=== PATIENT | male | born 1985 | race Caucasian/White ===

== ENCOUNTER → 2019-07-16 15:29 | Outpatient (BNVA) | payer MEDICAID, SELFPAY | PROVIDERS: Visit Provider Nurse Practitioner | DX: M25.532 Pain in left wrist (principal); R60.9 Edema, unspecified | CPT/HCPCS: 73110 ==

== ENCOUNTER 2019-07-24 00:23 | Emergency (ER) | payer MEDICAID, SELFPAY ==
[2019-07-24 00:27] VITALS: BP 142/77; PULSE 106; RESP 18; TEMP 36.8; O2SAT 96; BMI 25.0
[2019-07-24 00:31] VITALS: PULSE 90
--- NOTE | 2019-07-24 00:31 | XR_ITS ---
WS: [id number] LEFT WRIST: 3 VIEW(S) TECHNIQUE: PA, oblique and lateral. HISTORY: injury with pain and swelling COMPARISON: 07/16/2019 No acute fracture or dislocation. No joint space abnormality. Diffuse soft tissue swelling around the wrist. XR/XR wrist LT min 3V* [id number] IMPRESSION: Diffuse soft tissue swelling around the wrist but no fracture.
--- NOTE | 2019-07-24 00:31 | PC.NURSE ---
Patient states he was working on a car last week and the christie slipped out from under the car and the tire landed on his left wrist. Patients left wrist is reddened and swollen and painful to the touch.
--- NOTE | 2019-07-24 00:32 | W.ED.EXTPRO ---
HPI - Extremity Problem General: Chief complaint: Extremity Injury, Upper Stated complaint: L WRIST INJURY Time Seen by Provider: 07/24/19 00:25 History of Present Illness: HPI Narrative: Patient is a 34-year-old male who comes to the ED with left wrist pain and swelling. Patient says that last Sunday he injured it when a car that was sitting on a christie shifted and the weight of the car came down on patient's left wrist. That night he went to the ED in [place] and got an x-ray and they told him it was not broken and they gave him a wrist splint and told him to take it off in a week. They also told him if it is not getting better and are still having a lot of pain to get it I awaited. Patient just took off the wrist splint today and said the swelling and pain in his left wrist and hand has not gotten any better and wanted to come get the injury reevaluated. He still has feeling sensation in his hand. He has trouble with certain movements of his wrist and fingers because of the pain. Patient currently rates pain in wrist a 9 out of 10. Associated symptoms: Deny chest pain, fever(s) or rash Review of Systems Const: Denies: fever, chills or fatigue Eyes: Denies: change in vision or eye discomfort ENMT: Denies: throat pain, painful swallowing, nasal discharge or nasal congestion Card: Denies: chest pain, palpitations, edema, swelling of feet/ankles, shortness of breath on exertion or shortness of breath when lying down Resp: Denies: shortness of breath, productive cough or non-productive cough GI: Denies: abdominal pain, nausea, vomiting, diarrhea, constipation or blood in stool : Denies: flank pain, difficulty urinating, painful urination or blood in urine Musc: Reports: extremity pain (left hand and wrist) and extremity swelling (left hand and wrist); Denies: neck pain or back pain Skin/Breast: Denies: rash or new lesion Neuro: Denies: headache, numbness in extremities or weakness in extremities [facility] ED PFSH: Medical History No active medical problems Surgical History History of hernia repair Bilateral 2005 and 2010 Family History Other Cancer Denies family history of Bleeding disorder Social History Smoking and tobacco status: current every day smoker Second hand smoke exposure: No Smoking risk assessment/counseling performed?: No Alcohol intake: current Alcohol intake frequency: holidays/special occasions only Desire information about alcohol rehabilitation?: No Counseling given: No Desire information about substance/drug rehabilitation?: No Counseling given: No Caregiver/support person: No Lives independently: Yes Household members: significant other Marital status: Single Number of children: 0 service: No Current occupational status: unemployed History of recent travel: No Current gender identity: Male Physical Exam Const: COMMON NORMALS: oriented x3 HENMT: COMMON NORMALS: normocephalic HEAD & SCALP: normocephalic MOUTH: oral and palatal mucosa normal THROAT: posterior oropharynx normal and uvula midline Eye: COMMON NORMALS: PERRL PUPIL: Yes PERRL Neck/C-Spine: COMMON NORMALS: supple GENERAL: Yes normal visual inspection Resp: COMMON NORMALS: normal respiratory effort, no retractions, no use of accessory muscles and clear to auscultation bilaterally AUSCULTATION: clear to auscultation bilaterally Cardio: COMMON NORMALS: regular rate, regular rhythm, S1 normal heart sound, S2 normal heart sound, no gallops, no clicks, no murmurs and peripheral pulses 2+ throughout RATE: regular rate RHYTHM: regular rhythm HEART SOUNDS: S1 normal and S2 normal PERIPHERAL PULSES: pulses 2+ throughout GI: COMMON NORMALS: normal to inspection, nondistended, normoactive bowel sounds, soft to palpation, non-tender and no masses PALPATION: Yes soft : COMMON NORMALS: Yes no CVA tenderness BLADDER/KIDNEY EXAM: Yes no CVA tenderness Back/Pelvis: COMMON NORMALS: no CVA tenderness Extremity: COMMON NORMALS: normal capillary refill GENERAL: Yes normal exam except as noted LEFT UPPER EXTREMITY: Yes wrist Left wrist: Yes inspection (swelling), Yes palpation (tender ulnar side of wrist.), Yes ROM (Limited due to pain) and Yes neurovascular exam (Intact) and Yes hand & digits Left hand and digits: Yes inspection (Hand and fingers are swollen. No warmth), Yes palpation (tender), Yes ROM (limited due to pain) and Yes neurovascular exam (intact-normal cap refill) Neuro: COMMON NORMALS: oriented x3 and moves all extremities Skin: COMMON NORMALS: no rashes or lesions noted GENERAL SKIN EXAM: no rashes or lesions noted and dry skin Course Vital Signs: Vital signs: Vital Signs Temperature 98.2 F 07/24/19 00:27 Pulse Rate 96 07/24/19 01:38 Respiratory Rate 16 07/24/19 01:38 Blood Pressure 133/72 07/24/19 01:38 Pulse Oximetry 95 07/24/19 01:38 MDM - Extremity (Nontraumatic) MDM Narrative: Medical decision making narrative: Patient is a 34-year-old male comes to the ED for a subsequent encounter after having an injury to his left wrist. A week ago patient was seen at the [facility] and an x-ray was performed and saw no acute fractures on his left wrist. They told him to return to ED for reevaluation once swelling has gone down and if pain is still present. X-ray of left wrist today showed possible metacarpal fracture and was suspicious for possible scaphoid fracture. Patient was placed in a thumb spica splint and given a written prescription for hydrocodone for pain. I placed an order with case management to provide patient with an orthopedic referral. I told patient [facility] orthopedic office should be contacting patient in the next several days to set up an appointment. I told him to keep splint on and to limit use of left hand. Patient understood and agreed with plan. Imaging Data^: Xray Ortho: Attestation: I personally reviewed and interpreted this imaging study as follows: My impression: Left wrist x-ray--possible second metacarpal fracture. Suspicious for potential scaphoid fracture. Pending final radiology report. Discharge Plan Discharge Patient Disposition: Home, Self-Care Clinical Impression: Fx metacarpal Qualifiers: Encounter type: subsequent encounter Metacarpal bone: second Fracture type: closed Metacarpal location: base Fracture alignment: nondisplaced Laterality: left Fracture healing: with routine healing Qualified Code(s): S62.341D - Nondisplaced fracture of base of second metacarpal bone, left hand, subsequent encounter for fracture with routine healing Condition: Stable Prescriptions: No Action No Known Home Medications RF: 0 Discharge Orders: Discharge Order (Routine); Ordered 04/30/20 Ordered By: Fer Chase Discharge Diet: Regular Discharge Activity: Limit activity as instructed Patient Instructions: Hand Fracture (ED) Activity Restrictions/Additional Instructions: [facility] orthopedic clinic should be calling you in the next several days to set up an appointment. Wear splint until seen by Ortho. Sending you home with a written prescription for hydrocodone for pain. You can also add some doses of ibuprofen in between the hydrocodone to help with pain. See [id number] ibuprofen instructions for dosing. Limit use with left hand. Discharge Date/Time: 07/24/19 01:42 Coding Level of Care Code ED Director Information for Ayan Fwrio Exam Comprehensive
[2019-07-24 00:34] VITALS: BP 137/84; PULSE 106; RESP 16; O2SAT 97
[2019-07-24] MEDS: HYDROcodone-acetaminophen 7.5-325 mg Tablet 1 TAB PO (00:40)
--- NOTE | 2019-07-24 00:43 | PC.NURSE ---
xray in room
[2019-07-24 01:38] VITALS: BP 133/72; PULSE 96; RESP 16; O2SAT 95
--- NOTE | 2019-07-25 10:03 | DCPLANNER ---
Addendum entered by Nayeli Mckay 07/25/19 10:24: Pat from ortho called binder caser back, stated that patients information was reviewed, patient is to follow ED instructions and will follow up with Dr. Harper on at 1:00 at the ortho clinic. The clinic attempted to call patient at phone number [phone], was unable to speak with patient or leave a voicemail for patient at this time at this number. Clinic did leave a voicemail at phone number [phone] for patient to return binder caser phone call. Clinic will mail out an appointment letter to patient. manager of development called [phone] and was unable to speak with patient or leave a voicemail for patient. Original Note: manager of development had message to schedule a follow up appointment for patient with ortho. manager of development called the ortho clinic, spoke with Pat, gave clinic patients information. manager of development was told that patients information would be printed and reviewed. Clinic will call binder caser and patient with appointment information.
--- NOTE | 2019-09-24 13:23 | DCPLANNER ---
Patient did not attend appointment scheduled for 08.20.19 with ortho.
== END 2019-07-24 01:42 | disposition home or self-care (01) ==
PROVIDERS: Emergency Provider Physician Assistant
DX: S62.341A Nondisplaced fracture of base of second metacarpal bone, left hand, initial encounter for closed fracture (principal); W20.8XXA Other cause of strike by thrown, projected or falling object, initial encounter; F17.210 Nicotine dependence, cigarettes, uncomplicated
CPT/HCPCS: 12345; 73110; 99281; 99283

== ENCOUNTER 2019-11-18 23:01 | Emergency (ER) | payer MEDICAID, SELFPAY ==
--- NOTE | 2019-11-18 23:04 | XRR_ITS ---
PROCEDURE INFORMATION: Exam: XR Right Shoulder Exam date and time: 11/18/2019 11:38 PM Age: 34 years old Clinical indication: Pain; Shoulder; Right; Patient HX: Patient denies any injury TECHNIQUE: Imaging protocol: XR Right shoulder. Views: 2 or more views. COMPARISON: MRI Shoulder w/o RIGHT* [id number] 05/27/2018 3:11 PM FINDINGS: Bones/joints: No fractures, dislocations, or separations identified. No significant bony abnormality identified. Soft tissues: No subcutaneous gas or radiopaque foreign body identified. XR/XR shoulder RT min 2V* [id number] IMPRESSION: 1. No fractures, dislocations, or separations identified.
[2019-11-18 23:16] VITALS: BP 118/73; PULSE 89; RESP 18; TEMP 36.7; O2SAT 98; BMI 26.6
[2019-11-19 02:02] VITALS: BP 132/87; PULSE 87; RESP 16; O2SAT 98
--- NOTE | 2019-11-19 02:04 | ED_ITS ---
HPI - Extremity Problem General: Chief complaint: Extremity Injury, Upper Stated complaint: shoulder pain Time Seen by Provider: 11/19/19 02:03 History of Present Illness: HPI Narrative: Patient is a 34-year-old male comes to the ED with right shoulder pain. Patient says he was working today and lifting something heavy and he heard and felt his shoulder pop. He now has pain in his right shoulder and it hurts for him to lift his right arm. Associated symptoms: Deny chest pain, fever(s) or rash Review of Systems Const: Denies: fever(s), chills or fatigue Eyes: Denies: change in vision or eye discomfort ENMT: Denies: throat pain, odynophagia, nasal discharge or nasal congestion Card: Denies: chest pain, palpitations, edema, swelling of feet/ankles, dyspnea on exertion or orthopnea Resp: Denies: dyspnea, productive cough or non-productive cough GI: Denies: abdominal pain, nausea, vomiting, diarrhea, constipation or hematochezia : Denies: flank pain, difficulty urinating, dysuria or hematuria Musc: Reports: extremity pain (Right shoulder pain); Denies: neck pain, back pain or extremity swelling Skin/Breast: Denies: rash or new lesions Neuro: Denies: headache(s), numbness in extremities or weakness in extremities PFSH ED PFSH: Medical History Personal history of nicotine dependence Surgical History History of hernia repair Bilateral 2005 and 2009 Family History Other Cancer Denies family history of Bleeding disorder Social History Smoking and tobacco status: current every day smoker Second hand smoke exposure: No Smoking risk assessment/counseling performed?: No Alcohol intake: current Alcohol intake frequency: holidays/special occasions only Desire information about alcohol rehabilitation?: No Counseling given: No Desire information about substance/drug rehabilitation?: No Counseling given: No Caregiver/support person: No Lives independently: Yes Household members: significant other Marital status: Single Number of children: 0 service: No Current occupational status: unemployed History of recent travel: No Current gender identity: Male Physical Exam Const: COMMON NORMALS: no acute distress, patient oriented x3, healthy appearing and alert GENERAL APPEARANCE: cooperative and comfortable HENMT: COMMON NORMALS: normocephalic HEAD & SCALP: normocephalic MOUTH: Normal oral and palatal mucosa present THROAT: posterior oropharynx normal and uvula midline Eye: COMMON NORMALS: Equal, round and reactive pupils present PUPIL: Yes Equal, round and reactive pupils present Neck/C-Spine: COMMON NORMALS: supple GENERAL: Yes normal visual inspection Resp: COMMON NORMALS: normal respiratory effort, No retractions, No use of accessory muscles and clear to auscultation bilaterally AUSCULTATION: clear to auscultation bilaterally Cardio: COMMON NORMALS: regular rate, regular rhythm, S1 normal heart sound present, S2 normal heart sound present, No gallops present (Cardio), No clicks present (Cardio), No murmurs present (Cardio) and Peripheral pulses 2+ throughout RATE: regular rate RHYTHM: regular rhythm HEART SOUNDS: S1 normal heart sound present and S2 normal heart sound present PERIPHERAL PULSES: Peripheral pulses 2+ throughout GI: COMMON NORMALS: Normal to inspection, nondistended, normoactive bowel sounds present, Soft to palpation, non-tender and no masses PALPATION: Yes Soft to palpation : COMMON NORMALS: Yes no CVA tenderness BLADDER/KIDNEY EXAM: Yes no CVA tenderness Back/Pelvis: COMMON NORMALS: no CVA tenderness Extremity: NARRATIVE EXTREMITY EXAM: Left upper extremity--Patient had tenderness to palpation of the right shoulder over AC joint and proximal end of humerus. Pain with abduction of right arm. Radial pulse was 2+ and sensation intact to hands. Patient had normal range of motion with elbow forearm and hands. GENERAL: Yes normal exam except as noted Neuro: COMMON NORMALS: patient oriented x3 and moves all extremities SENSORIUM/ORIENTATION: Yes alert Skin: GENERAL SKIN EXAM: dry skin Course Vital Signs: Vital signs: Vital Signs Temperature 98.1 F 11/18/19 23:16 Pulse Rate 87 11/19/19 02:02 Respiratory Rate 16 11/19/19 02:02 Blood Pressure 132/87 11/19/19 02:02 Pulse Oximetry 98 11/19/19 02:02 MDM - Extremity (Nontraumatic) MDM Narrative: Medical decision making narrative: Patient is a 34-year-old male who comes to the ED with right shoulder pain. Patient said that he heard his shoulder pop while working and lifting a heavy object today. Right shoulder x-ray showed no acute fracture findings. I discussed with patient that the x-ray does not rule out any soft tissue damage that could have been done to shoulder and for further evaluation he would need to receive outpatient imaging. Physical exam showed a patient with pain upon abduction of right arm. Radial pulse was 2+ and sensation intact distally in right upper extremity. Patient was diagnosed with right shoulder pain and given a shot of Toradol and Norflex while here in the ED. Order was placed with case management for patient to be referred to orthopedic. Patient was sent home with a prescription for Robaxin and 800 mg ibuprofen. He was told to wear sling and limit activity with right arm. I told him case management should be contacting him the next several days to set up an appoint with orthopedic doctor. Patient understood and agreed with plan. Imaging Data^: Xray Ortho: Attestation: I personally reviewed and interpreted this imaging study as follows: My impression: Right shoulder x-ray-no acute fractures or findings. Discharge Plan Discharge Patient Disposition: Home Clinical Impression: Right shoulder pain Qualifiers: Chronicity: acute Qualified Code(s): M25.511 - Pain in right shoulder Condition: Stable Prescriptions: New ibuprofen 800 mg tablet 800 mg PO Q8H PRN (Reason: pain) Qty: 30 RF: 0 Robaxin-750 750 mg tablet 750 mg PO Q8H Qty: 20 RF: 0 No Action No Known Home Medications RF: 0 Discharge Orders: Discharge Order (Routine); Ordered 11/19/19 Ordered By: Fer Chase Discharge Diet: Regular Discharge Activity: Increase activity as tolerated and Limit activity as instructed Patient Instructions: Shoulder Sprain (ED) Activity Restrictions/Additional Instructions: Follow-up with medical provider as directed. Case management should be contacting you in the next several days to set up an appointment with orthopedic. You can wear your shoulder sling at home daily to help with pain. Make sure to remove arm from sling daily and do range of motion exercises. Take medications as prescribed. Robaxin is a muscle relaxer and can cause some drowsiness, so take at night before bed and use with caution during the day. Return to the ER or your medical provider if condition worsens. Please read and understand discharge instructions. If any questions, please ask. Coding Level of Care Code ED Psychologist [employer] for Ayan Fwrio Exam Comprehensive
[2019-11-19] MEDS: ketorolac 60 mg/2 mL INJ IM (02:30)
[2019-11-19] MEDS: orphenadrine 30 mg/mL Inj 2 mL 60 MG IM (02:31)
[2019-11-19 02:32] VITALS: BP 123/76; PULSE 89; RESP 16; O2SAT 98
--- NOTE | 2019-11-19 08:10 | DCPLANNER ---
manager discovery had message to schedule a follow up appointment for patient with ortho. manager discovery called the ortho clinic, spoke with Cydney, gave clinic patients information. manager discovery was told that patients information would be printed and reviewed. Clinic will call patient with appointment information.
--- NOTE | 2019-11-21 15:44 | DCPLANNER ---
Patient has a follow up appointment for patient with ortho scheduled for Sunday, December 03, 2019 at 1:[address] Cisneros. Clinic will call patient with appointment information.
--- NOTE | 2019-12-23 08:15 | DCPLANNER ---
Patient had a follow up appointment scheduled for 12.03.19 with ortho - patient did attend the appointment.
== END 2019-11-19 02:33 | disposition home or self-care (01) ==
PROVIDERS: Emergency Provider Physician Assistant
DX: M25.511 Pain in right shoulder (principal); F17.210 Nicotine dependence, cigarettes, uncomplicated
CPT/HCPCS: 12345; 73030; 96372; 99281; 99283; J1885; J2360

== ENCOUNTER 2019-12-15 16:22 | Outpatient (CLI) | payer MEDICAID, SELFPAY ==
--- NOTE | 2019-12-15 16:00 | MR_ITS ---
WS: [id number] MRI RIGHT SHOULDER NONCONTRAST TECHNIQUE: Sagittal T2, coronal T1, T2 and proton density imaging. Axial gradient PDE imaging. CLINICAL INFORMATION: M25.511 Pain in right shoulder COMPARISON: MRI 3 FINDINGS: Mild degenerative arthritis of the AC joint. Mild subacromial spurring. Tendinopathy in the distal sorensen praspinatus with small undersurface tear at the insertion. Infraspinatus is slightly atrophic but oth erwise appears normal today. Normal teres minor and subscapularis. Normal signal in the subscapularis tendons. Chronic tear of the proximal biceps tendon not visualized in the bicipital groove. Atrophic proximal biceps tendon. Distal biceps tendon appears intact but atrophic. Grossly normal glenoid lab rum. Cystic degenerative change the greater tuberosity. Small amount of subacromial/subdeltoid fluid. MR/MR shoulder RT wo con* [id number] IMPRESSION: 1. Mild degenerative arthritis AC joint with a small amount of subacromial/sub deltoid fluid. 2. Tendinopathy in the distal supraspinatus with a small undersurface tear at the insertion. 3. No full-thickness rotator cuff tears. Normal signal today and infraspinatus and subscapularis. 4. Proximal biceps tendon is poorly visualized and chronically torn. Distal bi ceps tendon appears intact but somewhat atrophic. 5. Cystic degenerative change at the greater tuberosity.
== END 2019-12-15 16:23 | disposition home or self-care (01) ==
LOC: RADSHAW 16:27
PROVIDERS: Visit Provider Specialist
DX: M19.011 Primary osteoarthritis, right shoulder (principal); S46.211A Strain of muscle, fascia and tendon of other parts of biceps, right arm, initial encounter; X58.XXXA Exposure to other specified factors, initial encounter
CPT/HCPCS: 73221

== ENCOUNTER 2019-12-31 06:50 | Emergency (ER) | payer MEDICAID, SELFPAY ==
[2019-12-31 07:12] VITALS: BP 140/80; PULSE 108; RESP 20; TEMP 37.3; O2SAT 98; BMI 27.3
--- NOTE | 2019-12-31 07:22 | W.ED.ABDPA2 ---
HPI - Abdominal Pain General: Chief Complaint: Abdominal Pain Stated Complaint: ABD PAIN POST CONSTIPATION/RECENT FEVER Time Seen by Provider: 12/31/19 06:51 History of Present Illness: HPI narrative: 34-year-old male patient presents to the emergency department with acute onset of abdominal pain started last night. He reports attempted to have a bowel movement but was unable to do so. He reports his last bowel movement was several days ago. He reports nausea vomiting started during the night. Denies diarrhea. Denies hematemesis, hematochezia. History of hernia surgery years ago, right inguinal. He reports while attempting to go to the bathroom to have a bowel movement yesterday, he felt a pop in his abdomen. Reports history of irritable bowel symptoms. He reports pain he is experiencing currently is different from IBS symptoms. MD elicited complaint: abdominal pain Pertinent past history: constipation Onset (ago): day(s) (24) Pain Consistency: constant Location: Diffuse Severity: moderate Quality: cramping and aching Migration to: no migration Exacerbating factors: bowel movement Relieving factors: rest Associated Symptoms: Reports change in bowel habits (Constipation), GI cramping, nausea and vomiting; Denies chills, dysuria, fever(s), hematemesis, melena and syncope Review of Systems General: Reports: 10 or more systems reviewed and unremarkable except in HPI and below Const: Denies: fever(s), chills or diaphoresis Eyes: Denies: blurry vision or eye redness ENMT: Denies: throat pain, dental pain or disequilibrium Card: Denies: chest pain, palpitations, irregular heart rhythm or syncope Resp: Denies: dyspnea, productive cough, non-productive cough or wheezing GI: Reports: abdominal pain, nausea, vomiting, GI cramping and change in bowel habits (Constipation); Denies: hematemesis, dysphagia or melena : Denies: dysuria Musc: Denies: back pain Skin/Breast: Denies: rash or pruritus Neuro: Denies: headache(s), weakness in extremities or behavioral changes Isma/Lymph: Denies: easy bruising [facility] ED PFSH: Medical History (Updated 12/31/19 @ 08:33 by ANNMARIE Toure) Personal history of nicotine dependence Surgical History History of hernia repair Bilateral 2005 and 2009 Family History Other Cancer Denies family history of Bleeding disorder Social History (Updated 12/31/19 @ 07:46 by Jeannine Garcia [facility]) Smoking and tobacco status: current every day smoker Second hand smoke exposure: No Smoking risk assessment/counseling performed?: No Alcohol intake: current Alcohol intake frequency: holidays/special occasions only Desire information about alcohol rehabilitation?: No Counseling given: No Desire information about substance/drug rehabilitation?: No Counseling given: No Caregiver/support person: No Lives independently: Yes Household members: significant other Marital status: Single Number of children: 0 service: No Current occupational status: unemployed History of recent travel: No Current gender identity: Male Physical Exam Const: COMMON NORMALS: no acute distress, patient oriented x3 and alert GENERAL APPEARANCE: cooperative, in distress (Due to pain) and diaphoretic NUTRITIONAL APPEARANCE: thin ORIENTATION/CONSCIOUSNESS: Yes awake, Yes oriented to person, Yes oriented to place and Yes oriented to time HENMT: COMMON NORMALS: normocephalic, Normal external nose present and moist oral mucous membranes HEAD & SCALP: normocephalic NOSE: Normal external nose present Eye: COMMON NORMALS: Equal, round and reactive pupils present and EOMs intact bilaterally GENERAL EYE: appearance normal, both eyes and all related structures PUPIL: Yes Equal, round and reactive pupils present Neck/C-Spine: COMMON NORMALS: full ROM and no lymphadenopathy GENERAL: Yes normal visual inspection and Yes trachea midline CERVICAL SPINE: Yes cervical ROM normal Lymph: LYMPHATIC: no lymphadenopathy noted Chest: COMMONS NORMALS: normal inspection of the chest Resp: COMMON NORMALS: normal respiratory effort and clear to auscultation bilaterally EFFORT & INSPECTION: Yes able to speak in complete sentences AUSCULTATION: clear to auscultation bilaterally Cardio: COMMON NORMALS: regular rhythm, S1 normal heart sound present, S2 normal heart sound present and Peripheral pulses 2+ throughout RATE: tachycardic RHYTHM: regular rhythm HEART SOUNDS: S1 normal heart sound present and S2 normal heart sound present PERIPHERAL PULSES: Peripheral pulses 2+ throughout GI: COMMON NORMALS: Soft to palpation INSPECTION: Yes normal to inspection AUSCULTATION: Yes Hypoactive bowel sounds present PALPATION: Yes Soft to palpation, Yes Tenderness to palpation present (GI) Details: LLQ, RLQ, LUQ and RUQ, No Rigid due to palpation, No Abdominal wall crepitus present and Yes Rebound tenderness present Back/Pelvis: COMMON NORMALS: thoracic and lumbar spine normal to inspection THORACIC SPINE/UPPER BACK: Yes normal to inspection LUMBAR SPINE/LOWER BACK: Yes normal to inspection Extremity: COMMON NORMALS: normal to inspection and capillary refill normal GENERAL: Yes normal exam except as noted Neuro: COMMON NORMALS: patient oriented x3 and no focal motor deficits SENSORIUM/ORIENTATION: Yes alert, Yes oriented to person, Yes oriented to place and Yes oriented to time SPEECH: speech normal GAIT: Yes Other gait observations present (guarding abdomen when ambulating) MOTOR EXAM: 5/5 motor strength present throughout Psych: COMMON NORMALS: mental status grossly normal, Normal thought process present and cooperative ACTIVITY/MOTOR BEHAVIOR: Yes appropriate eye contact THOUGHT PROCESS: Normal thought process present Skin: COMMON NORMALS: no rashes or lesions noted and turgor normal GENERAL SKIN EXAM: no rashes or lesions noted and turgor normal Course ED course: 34-year-old male patient presents to the emergency department with acute abdominal pain. Lipase normal, lactate normal, white blood count slightly elevated, no anemia appreciated. He received 1 L of fluid with morphine and Zofran for nausea and abdominal pain. Abdominal pain and nausea resolved, able to tolerate p.o. fluids without nausea vomiting. He has history of irritable syndrome, Bentyl administered here in the ED. Ibuprofen use stopped secondary to gastritis finding on CT scan. CT scan abdomen and pelvis with IV contrast did not reveal acute abdominal findings. Incidental note of pulmonary nodule in right and left pulmonary lung base will need follow-up in 12 months. Social service referral for primary care follow-up in 5 days with recommendation of follow-up repeat CT chest in 12 months completed. Patient was notified of CT results and serology findings. He was counseled on methamphetamine use, he declined referral for substance abuse. Reevaluation(s): Reevaluation #1: Abdominal pain; not able to produce abdominal pain, nausea resolved, belly remains soft, bowel sounds remain active. Tolerating p.o. fluids without nausea vomiting. His mother is now at bedside. Time: 08:40 Vital Signs: Vital signs: Vital Signs Temperature 99.1 F 12/31/19 07:12 Pulse Rate 98 12/31/19 08:58 Respiratory Rate 20 H 12/31/19 07:12 Blood Pressure 116/73 12/31/19 08:58 Pulse Oximetry 96 12/31/19 08:58 MDM - Abdominal Pain Lab Data: Labs: Lab Results 12/31/19 12/31/19 12/31/19 Range/Units 07:25 07:25 07:25 WBC 11.5 H (4.0-10.0) 10^3/ uL RBC 5.24 (4.1-5.3) 10^6/u L Hgb 13.1 (11.7-16.6) g/dL Hct 40.3 L (42.0-52.0) % MCV 76.9 L (80-94) fL MCH 25.0 L (28.0-34.0) pg MCHC 32.5 (30.0-36.0) g/dL RDW 13.8 (12.1-15.1) % Plt Count 252 (130-400) 10^3/c mm MPV 8.5 (7.4-10.4) fL Neut % (Auto) 75.5 % Lymph % (Auto) 13.7 % Whiteside % (Auto) 10.1 % Eos % (Auto) 0.1 % Baso % (Auto) 0.3 % Neut # (Auto) 8.70 H (1.8-7.7) 10^3/u L Lymph # (Auto) 1.6 (0.8-4.8) 10^3/u L Whiteside # (Auto) 1.2 H (0.2-0.9) 10^3/u L Eos # (Auto) 0.0 (0.0-0.8) 10^3/u L Baso # (Auto) 0.0 (0.0-0.1) 10^3/u L Nucleated RBC % (a uto) 0 % Nucleated RBCs # 0.0 /100WBC Sodium 131 L (136-145) mmol/L Potassium 4.2 (3.5-5.1) mmol/L Chloride 96 L (98-107) mmol/L Carbon Dioxide 20 L (22-29) mmol/L Anion Gap 19.2 H (5-19) BUN 19 (6-20) mg/dL Creatinine 1.1 (0.7-1.2) mg/dL GFR Calculation 76.6 L (90-130) mL/min Glucose 97 (65-115) mg/dL Calculated Osmolal ity 274 L (285-295) mOsm/k g Lactate 0.8 (0.5-2.2) mmol/L Calcium 9.6 (8.5-10.5) mg/dL Total Bilirubin 0.7 (0.15-1.2) mg/dL AST 21 (0-40) U/L ALT 17 (0-41) U/L Alkaline Phosphata se 86 (40-130) IU/L Total Protein 7.5 (6.6-8.7) g/dL Albumin 4.2 (3.5-5.2) g/dL Globulin 3.3 (1.3-4.6) g/dL Lipase 9 L (13-60) U/L Urine Color (Yellow) Urine Appearance (CLEAR) Urine pH (5-7) Ur Specific Gravit y (1.005-1.030) Urine Protein (Negative) Urine Glucose (UA) (Normal) Urine Ketones (Negative) Urine Blood (Negative) Urine Nitrate (Negative) Urine Bilirubin (Negative) Urine Urobilinogen (Negative) mg/dL Ur Leukocyte Leydi ase (Negative) 12/31/19 Range/Units 07:40 WBC (4.0-10.0) 10^3/ uL RBC (4.1-5.3) 10^6/u L Hgb (11.7-16.6) g/dL Hct (42.0-52.0) % MCV (80-94) fL MCH (28.0-34.0) pg MCHC (30.0-36.0) g/dL RDW (12.1-15.1) % Plt Count (130-400) 10^3/c mm MPV (7.4-10.4) fL Neut % (Auto) % Lymph % (Auto) % Whiteside % (Auto) % Eos % (Auto) % Baso % (Auto) % Neut # (Auto) (1.8-7.7) 10^3/u L Lymph # (Auto) (0.8-4.8) 10^3/u L Whiteside # (Auto) (0.2-0.9) 10^3/u L Eos # (Auto) (0.0-0.8) 10^3/u L Baso # (Auto) (0.0-0.1) 10^3/u L Nucleated RBC % (a uto) % Nucleated RBCs # /100WBC Sodium (136-145) mmol/L Potassium (3.5-5.1) mmol/L Chloride (98-107) mmol/L Carbon Dioxide (22-29) mmol/L Anion Gap (5-19) BUN (6-20) mg/dL Creatinine (0.7-1.2) mg/dL GFR Calculation (90-130) mL/min Glucose (65-115) mg/dL Calculated Osmolal ity (285-295) mOsm/k g Lactate (0.5-2.2) mmol/L Calcium (8.5-10.5) mg/dL Total Bilirubin (0.15-1.2) mg/dL AST (0-40) U/L ALT (0-41) U/L Alkaline Phosphata se (40-130) IU/L Total Protein (6.6-8.7) g/dL Albumin (3.5-5.2) g/dL Globulin (1.3-4.6) g/dL Lipase (13-60) U/L Urine Color Yellow (Yellow) Urine Appearance Clear (CLEAR) Urine pH 6.5 (5-7) Ur Specific Gravit y 1.010 (1.005-1.030) Urine Protein Neg (Negative) Urine Glucose (UA) Norm (Normal) Urine Ketones 2+ H (Negative) Urine Blood Neg (Negative) Urine Nitrate Negative (Negative) Urine Bilirubin Neg (Negative) Urine Urobilinogen 4 H (Negative) mg/dL Ur Leukocyte Leydi ase Negative (Negative) Imaging Data ^: CT Abd/Pel: Radiologist's impression: [address] [address] [address] Scan Report Signed Patient: Min Stanley Unit #: [id number] : 1985 Age/Sex: 34 / M ADM Date: 12/31/19 Loc: ER Room/Bed: Attending Dr: Ordering Provider/Ordering MD: Jeannine Garcia Date of Service: 12/31/19 Procedure(s): CT abdomen pelvis w con* [id number] Accession Number(s): [id number] Report Number: [id number] WS: [id number] CT ABDOMEN PELVIS TECHNIQUE: Contrast-enhanced CT of the abdomen and pelvis with coronal and sagittal reformatted images. CLINICAL INFORMATION: abdominal pain COMPARISON: None. DLP: 468.[address] scans at [facility] use at least one of these dose optimization techniques: automated exposure control; mA and/or kV adjustment per patient size (includes targeted exams where dose is matched to clinical indication); or iterative reconstruction. FINDINGS: Mild diffuse fatty infiltration of the liver. Incidental right hepatic cyst or hemangioma measuring 2.2 CM. Portal vein and splenic vein are patent. Normal gallbladder. Normal spleen. Tiny noncalcified nodule left lower lobe measuring 4 mm and right lower lobe measuring 4 mm. Lung bases are well aerated. Tiny esophageal hiatal hernia. Mild gastric wall thickening with enhancement can be seen with gastritis. No gastric outlet obstruction. Adrenal glands are normal. No hydronephrosis. Normal caliber abdominal aorta. Pancreas is normal in appearance. Normal spleen. No obstructing renal or ureteral calculi. No hydronephrosis. Normal sigmoid colon. No evidence of small or large bowel obstruction. Normal ileocecal valve. No evidence of acute appendicitis. No free fluid in the pelvis. Incidental fat-containing umbilical hernia. CT/CT abdomen pelvis w con* [id number] IMPRESSION: 1. No evidence of acute appendicitis. 2. Mild gastric wall thickening and enhancement can be seen with gastritis. Small esophageal hiatal hernia. 3. Mild diffuse fatty infiltration of the liver. 4. Normal renal parenchymal enhancement. No hydronephrosis. No obstructing renal or ureteral calculi. 5. No free fluid in the abdomen or pelvis. 6. Noncalcified 4 mm nodule in the left and right lung base. Recommend 12 month follow-up chest CT. 7. Incidental fat-containing umbilical hernia. 8. No evidence of small or large bowel obstruction. Notified ANNMARIE Toure at 12/31/2019 Discharge Plan Discharge Patient Disposition: Home Clinical Impression: Abdominal pain in male, Abnormal CT scan, chest Gastritis Qualifiers: Gastritis type: unspecified gastritis Chronicity: acute Gastritis bleeding: without bleeding Qualified Code(s): K29.00 - Acute gastritis without bleeding Condition: Stable Prescriptions: New Zofran 4 mg tablet 4 mg PO 6XD PRN (Reason: nausea and vomiting) Qty: 10 RF: 0 Discontinued ibuprofen 800 mg tablet 800 mg PO Q8H PRN (Reason: pain) Qty: 30 RF: 0 Discharge Orders: Discharge Order (Routine); Ordered 12/31/19 Ordered By: Jeannine Garcia Discharge Diet: Advance as tolerated and Clear Liquid Discharge Activity: Limit activity as instructed Patient Instructions: Gastritis (ED), Methamphetamine Abuse (ED), Abdominal Pain (ED) Activity Restrictions/Additional Instructions: Clear liquid diet then advance over the next 6 to 8 hours as tolerated, advance to crackers, bland diet, avoid spicy, fatty or fried foods over the next several days You will need to follow-up with your primary care physician in 5 to 7 days without fail. He will need to follow-up due to abnormal findings on your CT scan, repeat CT scan of the chest in 12 months recommended by radiologist due to nodules. If you continue to experience nausea vomiting despite use of Zofran, blood in your vomit or blood in the stool, return to the emergency department It is encouraged that you refrain from substance abuse. Discharge Date/Time: 12/31/19 09:01 Coding Level of Care Code ED Quality Control Tester for Ayan Fwrio Exam Comprehensive
--- NOTE | 2019-12-31 07:26 | CT_ITS ---
WS: [id number] CT ABDOMEN PELVIS TECHNIQUE: Contrast-enhanced CT of the abdomen and pelvis with coronal and sagittal reformatted image s. CLINICAL INFORMATION: abdominal pain COMPARISON: None. DLP: 468.[address] scans at [facility] use at least one of these dose optimization techniques: automat ed exposure control; mA and/or kV adjustment per patient size (includes targeted exams where dose is matched to clinical indication); or iterative reconstruction. FINDINGS: Mild diffuse fatty infiltration of the liver. Incidental right hepatic cyst or hemangioma measuring 2 .2 CM. Portal vein and splenic vein are patent. Normal gallbladder. Normal spleen. Tiny noncalcified nodule left lower lobe measuring 4 mm and right lower lobe measuring 4 mm. Lung bases are well aerate d. Tiny esophageal hiatal hernia. Mild gastric wall thickening with enhancement can be seen with winnie ritis. No gastric outlet obstruction. Adrenal glands are normal. No hydronephrosis. Normal caliber abdominal aorta. Pancreas is normal in a ppearance. Normal spleen. No obstructing renal or ureteral calculi. No hydronephrosis. Normal sigmoid colon. No evidence of small or large bowel obstruction. Normal ileocecal valve. No vashti dence of acute appendicitis. No free fluid in the pelvis. Incidental fat-containing umbilical hernia. CT/CT abdomen pelvis w con* [id number] IMPRESSION: 1. No evidence of acute appendicitis. 2. Mild gastric wall thickening and enhancement can be seen with gastritis. Sm all esophageal hiatal hernia. 3. Mild diffuse fatty infiltration of the liver. 4. Normal renal parenchymal enhancement. No hydronephrosis. No obstructing shalom al or ureteral calculi. 5. No free fluid in the abdomen or pelvis. 6. Noncalcified 4 mm nodule in the left and right lung base. Recommend 12 lisa h follow-up chest CT. 7. Incidental fat-containing umbilical hernia. 8. No evidence of small or large bowel obstruction. Notified ANNMARIE Toure at 12/31/2019 8:18 AM.
[2019-12-31 07:28] VITALS: O2SAT 98
[2019-12-31 07:40] LABS: Basophils % 0.3 %; Eosinophils % 0.1 %; Hematocrit 40.3 % (42.0-52.0); Hemoglobin 13.1 g/dL (11.7-16.6); Lymphocytes # 1.6 10^3/uL (0.8-4.8); Lymphocytes % 13.7 %; Mean Corpuscular HGB Conc 32.5 g/dL (30.0-36.0); Mean Corpuscular Volume 76.9 fL (80-94); Mean Platelet Volume 8.5 fL (7.4-10.4); Monocytes # 1.2 10^3/uL (0.2-0.9); Monocytes % 10.1 %; Neutrophils % 75.5 %; Nucleated Red Blood Cells % 0 %; Platelet Count 252 10^3/cmm (130-400); Red Blood Count 5.24 10^6/uL (4.1-5.3); Red Cell Distribution Width 13.8 % (12.1-15.1); White Blood Count 11.5 10^3/uL (4.0-10.0)
[2019-12-31] MEDS: ondansetron 2 mg/ML SDV 2 mL 4 MG IVP (07:41)
[2019-12-31] MEDS: morphine 4 mg/mL SDV 1 mL 2 MG IVP (07:41)
[2019-12-31] MEDS: sodium chloride 0.9% 500 ML 999 ML IV (07:42)
[2019-12-31] MEDS: iohexol 300 mg/mL 100 mL Btl IV (07:55)
[2019-12-31 07:57] LABS: Lactate (Lactic Acid level) 0.8 mmol/L (0.5-2.2)
[2019-12-31 07:58] LABS: Alanine Aminotransferase 17 U/L (0-41); Albumin Level 4.2 g/dL (3.5-5.2); Alkaline Phosphatase 86 IU/L (40-130); Blood Urea Nitrogen 19 mg/dL (6-20); Calcium 9.6 mg/dL (8.5-10.5); Carbon Dioxide 20 mmol/L (22-29); Chloride 96 mmol/L (98-107); Globulin 3.3 g/dL (1.3-4.6); Glomerular Filtration Rate 76.6 mL/min (90-130); Glucose 97 mg/dL (65-115); Lipase 9 U/L (13-60); Osmolality Calculated 274 mOsm/kg (285-295); Sodium 131 mmol/L (136-145); Total Bilirubin 0.7 mg/dL (0.15-1.2); Total Protein 7.5 g/dL (6.6-8.7)
[2019-12-31 07:59] LABS: Anion Gap 19.2 (5-19); Aspartate Amino Transferase 21 U/L (0-40); Potassium 4.2 mmol/L (3.5-5.1)
[2019-12-31 08:27] LABS: Add Urine Microscopic? NO
[2019-12-31 08:29] LABS: Bilirubin Urine Neg (Negative); Blood Urine Neg (Negative); Glucose Urine UA Norm (Normal); Ketones Urine 2+ (Negative); Leukocyte Esterase Urine Negative (Negative); Nitrate Urine Negative (Negative); Protein Urine Neg (Negative); Urine Appearance Clear (CLEAR); Urine Color Yellow (Yellow); Urobilinogen Urine 4 mg/dL (Negative); pH Urine 6.5 (5-7)
[2019-12-31] MEDS: dicyclomine 20 mg Tablet PO (08:46)
[2019-12-31 08:58] VITALS: BP 116/73; PULSE 98; O2SAT 96
--- NOTE | 2019-12-31 09:55 | DCPLANNER ---
rd project manager had message to speak with patient about getting established with a primary care physician. rd project manager called phone number [phone], unable to speak with patient at this time, a voicemail was left for patient to return shelter case manager phone call.
--- NOTE | 2020-01-22 09:05 | DCPLANNER ---
hotel or motel manager was asked to call patient again to speak with him about getting established with a primary care physician. hotel or motel manager called patient, unable to speak with patient at this time, a voicemail was left for patient to return lead case manager phone call.
== END 2019-12-31 09:01 | disposition home or self-care (01) ==
PROVIDERS: Emergency Provider Nurse Practitioner Family
DX: K29.00 Acute gastritis without bleeding (principal); R93.89 Abnormal findings on diagnostic imaging of other specified body structures; F17.210 Nicotine dependence, cigarettes, uncomplicated
CPT/HCPCS: 12345; 74177; 80053; 81003; 83605; 83690; 85025; 87040; 87077; 87186; 87205; 96374; 96375; 99283; 99284; J2270; J2405; J7040; Q9967

== ENCOUNTER 2021-03-17 17:41 | Emergency (ER) | payer MEDICAID, SELFPAY ==
[2021-03-17 18:00] VITALS: BP 149/92; PULSE 85; RESP 16; TEMP 36.3; O2SAT 98
--- NOTE | 2021-03-17 18:04 | ED_ITS ---
HPI - Skin/Abscess/Foreign Bdy General: Chief complaint: Skin/Abscess/Foreign Body Stated complaint: severe abd pains Time Seen by Provider: 03/17/21 18:03 History of Present Illness: HPI narrative: Patient is a 35-year-old male who comes to the ED with rash on stomach. Patient says symptoms started earlier today while he was at work. He works as a electric arc welder and says that there is some small fiberglass type of equipment that he has to work with as well that he thinks got down into his shirt causing the rash on his abdomen. Rash is red, raised itchy and burning sensation. He also has multiple small abrasions of the skin in the abdomen as well. Denies any shortness of breath, lip or tongue swelling, bladder or bowel symptoms. Associated symptoms: Deny chills, fever(s), nausea or vomiting Review of Systems Const: Denies: fever(s), chills or fatigue Eyes: Denies: change in vision or eye discomfort ENMT: Denies: throat pain, odynophagia, nasal discharge or nasal congestion Card: Denies: chest pain, palpitations, edema, swelling of feet/ankles, dyspnea on exertion or orthopnea Resp: Denies: dyspnea, productive cough or non-productive cough GI: Denies: abdominal pain, nausea, vomiting, diarrhea, constipation or h ematochezia : Denies: flank pain, difficulty urinating, dysuria or hematuria Musc: Denies: neck pain, back pain or extremity swelling Skin/Breast: Reports: rash (Pruritic rash on abdomen.), pruritus and sores (Multiple superficial small sores on abdomen as well.); Denies: new lesions Neuro: Denies: headache(s), numbness in extremities or weakness in extremities PFS ED PFSH: Medical History Personal history of nicotine dependence Surgical History History of hernia repair Bilateral 2005 and 2009 Family History Other Cancer Denies family history of Bleeding disorder Social History Smoking and tobacco status: current every day smoker Second hand smoke exposure: No Smoking risk assessment/counseling performed?: No Alcohol intake: current Alcohol intake frequency: holidays/special occasions only Desire information about alcohol rehabilitation?: No Counseling given: No Desire information about substance/drug rehabilitation?: No Counseling given: No Caregiver/support person: No Lives independently: Yes Household members: significant other Marital status: Single Number of children: 0 service: No Current occupational status: unemployed History of recent travel: No Current gender identity: Male Physical Exam Const: COMMON NORMALS: no acute distress, patient oriented x3, healthy appearing and alert GENERAL APPEARANCE: cooperative and comfortable HENMT: COMMON NORMALS: normocephalic HEAD & SCALP: normocephalic MOUTH: Normal oral and palatal mucosa present THROAT: posterior oropharynx normal and uvula midline Neck/C-Spine: COMMON NORMALS: supple GENERAL: Yes normal visual inspection Resp: COMMON NORMALS: normal respiratory effort, No retractions, No use of accessory muscles and clear to auscultation bilaterally AUSCULTATION: clear to auscultation bilaterally Cardio: COMMON NORMALS: regular rate, regular rhythm, S1 normal heart sound present, S2 normal heart sound present, No gallops present (Cardio), No clicks present (Cardio), No murmurs present (Cardio) and Peripheral pulses 2+ throughout RATE: regular rate RHYTHM: regular rhythm HEART SOUNDS: S1 normal heart sound present and S2 normal heart sound present PERIPHERAL PULSES: Peripheral pulses 2+ throughout GI: COMMON NORMALS: Normal to inspection, nondistended, normoactive bowel sounds present, Soft to palpation, non-tender and no masses PALPATION: Yes Soft to palpation : COMMON NORMALS: Yes no CVA tenderness BLADDER/KIDNEY EXAM: Yes no CVA tenderness Back/Pelvis: COMMON NORMALS: no CVA tenderness Neuro: COMMON NORMALS: patient oriented x3 and moves all extremities SENSORIUM/ORIENTATION: Yes alert Skin: NARRATIVE SKIN EXAM: Raised erythemic maculopapular rash on abdomen that is warm to the touch. There is also multiple small superficial abrasions with some surrounding erythema and warmth as well. Findings suggestive of some sort of contact dermatitis along with possible cellulitis setting in around the superficial abrasions. GENERAL SKIN EXAM: dry skin Course Vital Signs: Vital signs: Vital Signs Temperature 97.4 F L 03/17/21 18:00 Pulse Rate 85 03/17/21 18:00 Respiratory Rate 16 03/17/21 18:00 Blood Pressure 149/92 03/17/21 18:00 Pulse Oximetry 98 03/17/21 18:00 MDM - Skin/Abscess/Foreign Bdy MDM Narrative: Medical decision making narrative: Patient is a 35-year-old male comes to the ED with rash on abdomen. Symptoms started today. Patient says that he works with some fiberglass material and he got down in his shirt causing his current rash. Vitals stable. Patient appears in no acute distress or pain. Exam shows dermatitis type rash on the abdomen along with a couple superficial abrasions with some surrounding erythema and warmth, suggestive of possible cellulitis as well. Patient was discharged home with a prescription for Bactrim, triamcinolone cream and a Medrol Dosepak. He was given return to ED precautions. Follow-up with his PCP in 7 to 10 days reevaluation. Patient stood agree with plan. Discharge Plan Discharge Patient Disposition: Home Clinical Impression: Dermatitis Cellulitis Qualifiers: Site of cellulitis: trunk Site of cellulitis of trunk: abdominal wall Qualified Code(s): L03.311 - Cellulitis of abdominal wall Condition: Stable Prescriptions: New Bactrim DS 800-160 mg tablet 1 tab PO BID 7 Days Qty: 14 RF: 0 triamcinolone acetonide 0.1 % cream 1 applic topical BID PRN (Reason: rash) Qty: 80 RF: 0 Medrol (Mark) 4 mg tablets,dose pack See Rx Instructions .ROUTE .COMPLEX Qty: 21 RF: 0 No Action Zofran 4 mg tablet 4 mg PO 6XD PRN (Reason: nausea and vomiting) Qty: 10 RF: 0 Discharge Orders: Discharge ED (Routine); Ordered 03/17/21 Ordered By: Fer Chase Discharge Diet: Regular Discharge Activity: Resume usual activity Patient Instructions: Cellulitis (ED), Dermatitis (ED) Activity Restrictions/Additional Instructions: Follow-up with medical provider as directed in 7 to 10 days reevaluation. Take medications as prescribed. Return to the ER or your medical provider if condition worsens. Please read and understand discharge instructions. Thank you for choosing [facility] for your healthcare needs today. Please realize this is an emergency room and that we are providing you with a medical screening exam and this may not be complete and all inclusive of all the testing and or work up that you may need to determine your ailment or severity of your illness. It is very important that you follow up as instructed or that you return to the Emergency Department should you have concerns or if your condition changes or worsens in any way. Coding Level of Care Code ED Manager Package for Ayan Oliveira Exam Comprehensive
== END 2021-03-17 18:49 | disposition home or self-care (01) ==
PROVIDERS: Emergency Provider Physician Assistant
DX: L30.9 Dermatitis, unspecified (principal); L03.311 Cellulitis of abdominal wall; F17.210 Nicotine dependence, cigarettes, uncomplicated
CPT/HCPCS: 99281

== ENCOUNTER 2021-04-20 20:41 | Emergency (ER) | payer MEDICAID, SELFPAY ==
[2021-04-20 21:02] VITALS: BP 153/100; PULSE 87; RESP 18; TEMP 36.6; O2SAT 99; BMI 25.8
[2021-04-20 21:51] VITALS: BP 148/98; PULSE 92; RESP 18; O2SAT 98
--- NOTE | 2021-04-20 21:53 | ED_ITS ---
HPI - Extremity Problem General: Chief complaint: Extremity Injury, Upper Stated complaint: groin pain R side, R leg pain Time Seen by Provider: 04/20/21 21:40 Source: patient Mode of arrival: ambulatory Limitations: no limitations History of Present Illness: 35-year-old male who states that he has been having sores with some cellulitis to his abdomen and legs he does admit to methamphetamine abuse states appear to be meth sores. States he does have some slight abdominal pain at his hernia repair site denies any fever states pain is 1 out of 10 denies any vomiting or diarrhea. Associated symptoms: Deny chest pain, fever(s) or rash Review of Systems Const: Denies: fever(s), chills, body aches or change in appetite Eyes: Denies: blurry vision or eye discomfort ENMT: Denies: throat pain or dental pain Card: Denies: chest pain Resp: Denies: dyspnea GI: Denies: abdominal pain, nausea, vomiting or diarrhea : Denies: dysuria Musc: Denies: neck pain or back pain Skin/Breast: Reports: sores; Denies: rash Neuro: Denies: headache(s) Psych: Denies: depression Isma/Lymph: Denies: easy bruising All/Imm: Denies: urticaria PFSH ED PFSH: Medical History (Updated 04/20/21 @ 21:54 by Lucas Schumacher MD) Personal history of nicotine dependence RLQ abdominal pain Surgical History (Updated 04/18/21 @ 12:54 by Delfin Choudhary MD) History of bilateral inguinal hernia repair Repair in 2005 and 2009 Family History Other Cancer Denies family history of Bleeding disorder Social History (Updated 04/18/21 @ 11:09 by Araceli Rothman) Smoking and tobacco status: current every day smoker Second hand smoke exposure: No Smoking risk assessment/counseling performed?: No Alcohol intake: current Alcohol intake frequency: holidays/special occasions only Desire information about alcohol rehabilitation?: No Counseling given: No Desire information about substance/drug rehabilitation?: No Counseling given: No Adopted: No Caregiver/support person: No Lives independently: Yes Household members: significant other and children Housing: House Marital status: Single Number of children: 1 Highest education level completed: GED or Equivalent service: No Current occupational status: employed Current occupation: [employer] in [place], [place] History of recent travel: No Current gender identity: Male Physical Exam Const: COMMON NORMALS: no acute distress, patient oriented x3 and healthy appearing HENMT: COMMON NORMALS: normocephalic and atraumatic HEAD & SCALP: normoce phalic and atraumatic Eye: COMMON NORMALS: Equal, round and reactive pupils present and EOMs intact bilaterally PUPIL: Yes Equal, round and reactive pupils present Neck/C-Spine: COMMON NORMALS: full ROM and supple Chest: COMMONS NORMALS: normal inspection of the chest and normal palpation of entire chest wall Resp: COMMON NORMALS: normal respiratory effort, No retractions, No use of accessory muscles and clear to auscultation bilaterally AUSCULTATION: clear to auscultation bilaterally Cardio: COMMON NORMALS: regular rate, regular rhythm and No murmurs present (Cardio) RATE: regular rate RHYTHM: regular rhythm GI: COMMON NORMALS: Normal to inspection, nondistended, normoactive bowel sounds present, Soft to palpation, non-tender and no masses PALPATION: Yes Soft to palpation Extremity: COMMON NORMALS: full ROM NARRATIVE EXTREMITY EXAM: Multiple open wounds to abdomen and leg with slight cellulitis no abscesses Neuro: COMMON NORMALS: patient oriented x3, moves all extremities and no focal motor deficits Psych: COMMON NORMALS: mental status grossly normal, Normal thought process present and cooperative THOUGHT PROCESS: Normal thought process present Skin: COMMON NORMALS: no rashes or lesions noted and no wounds GENERAL SKIN EXAM: no rashes or lesions noted Course Vital Signs: Vital signs: Vital Signs Temperature 97.9 F 04/20/21 21:02 Pulse Rate 92 04/20/21 21:51 Respiratory Rate 18 04/20/21 21:51 Blood Pressure 148/98 04/20/21 21:51 Pulse Oximetry 98 04/20/21 21:51 MDM - Extremity (Nontraumatic) Medical Decision Making Patient presents here with cellulitis also some sores likely from methamphetamine abuse will start on Keflex and Bactrim. Abdominal exam here is benign he has no signs of acute surgical issues was going to do a CT abdomen for his mesh but he refused he refused blood draw as well he stable for discharge. Discharge Plan Discharge Patient Disposition: Home Clinical Impression: Cellulitis Condition: Stable Prescriptions: New Bactrim DS 800-160 mg tablet 1 tab PO BID 10 Days Qty: 20 0RF cephalexin 500 mg capsule 500 mg PO TID 7 Days Qty: 21 0RF Naprosyn 500 mg tablet 500 mg PO BID PRN (Reason: pain) Qty: 20 0RF Discharge Orders: Discharge ED (Routine); Ordered 04/20/21 Ordered By: Lucas Schumacher Referrals: Delfin Choudhary MD [Primary Care Provider] - Discharge Diet: Advance as tolerated Discharge Activity: Resume usual activity Patient Instructions: Chronic Wound Care (ED), Acute Wounds (ED) Stand Alone Forms: Work/School Release Coding Level of Care Code ED [employer] for [employer]
[2021-04-20] MEDS: HYDROcodone-acetaminophen 5-325 mg Tablet 1 TAB PO (22:24)
[2021-04-20] MEDS: sulfamethoxazole-trimeth DS 160-800 mg Tablet 1 TAB PO (22:24)
[2021-04-20 22:32] VITALS: BP 136/87; PULSE 84; O2SAT 98
--- NOTE | 2021-04-20 22:34 | PC.NURSE ---
Patient refusal Patient refused ordered Lab work to be drawn as well as ordered CT scan. Patient advised that he has already had a CT scan.
== END 2021-04-20 22:36 | disposition home or self-care (01) ==
PROVIDERS: Emergency Provider Emergency Medicine; PCP Family Medicine Adult Medicine
DX: L03.90 Cellulitis, unspecified (principal); F17.210 Nicotine dependence, cigarettes, uncomplicated
CPT/HCPCS: 99283

== ENCOUNTER 2021-04-27 17:13 | Emergency (ER) | payer MEDICAID, SELFPAY ==
--- NOTE | 2021-04-27 17:19 | XRR_ITS ---
PROCEDURE INFORMATION: Exam: XR Abdomen Exam date and time: 04/27/2021 5:19 PM Age: 35 years old Clinical indication: Other: Diarrhea; Abdominal pain; Generalized; Prior surgery; Surgery type: Hernia; Additional info: Foreign body in feces TECHNIQUE: Imaging protocol: XR of the abdomen. Views: Frontal supine view of the abdomen. 1 View. COMPARISON: CT abdomen pelvis w con* [id number] 12/31/2019 7:46 AM FINDINGS: Gastrointestinal tract: Normal. No bowel dilation. No evidence of radiopaque foreign body. Bones/joints: Unremarkable. XR/XR KUB [id number] IMPRESSION: No acute findings.
[2021-04-27 17:49] VITALS: BP 150/82; PULSE 87; RESP 18; TEMP 37.1; O2SAT 98; BMI 26.6
[2021-04-27 18:14] VITALS: BP 150/82; PULSE 87; RESP 18; O2SAT 98
--- NOTE | 2021-04-27 18:17 | ED_ITS ---
HPI - General Adult General: Chief complaint: General Medical Stated complaint: FOREIGN OBJECT IN FECES Time Seen by Provider: 04/27/21 18:14 Source: patient Mode of arrival: ambulatory Limitations: no limitations History of Present Illness: 35-year-old male who has a history of methamphetamine abuse and has been actively using. He came in today with concerns of his bowel movements he states that he has had some mucousy bowels and saw strands of hair in his bed that he thought he may have defecated out. He has it in a baggy and I do not see any stool could have been just here that he found in his bed. He is having some abdominal cramping he rates a 1 out of 10 denies any vomiting has had no diarrhea he states he also had a mesh repair of her hernia years ago and is concerned that he is getting mesh in his stool as well Associated symptoms: Deny chest pain, dyspnea, headache(s), nausea, rash or vomiting Review of Systems Const: Denies: fever(s), chills, body aches or change in appetite Eyes: Denies: blurry vision or eye discomfort ENMT: Denies: throat pain or dental pain Card: Denies: chest pain Resp: Denies: dyspnea GI: Denies: abdominal pain, nausea, vomiting or diarrhea : Denies: dysuria Musc: Denies: neck pain or back pain Skin/Breast: Denies: rash Neuro: Denies: headache(s) Psych: Denies: depression Isma/Lymph: Denies: easy bruising All/Imm: Denies: urticaria PFSH ED PFSH: Medical History (Updated 04/27/21 @ 19:47 by Lucas Schumacher MD) Personal history of nicotine dependence RLQ abdominal pain Surgical History (Updated 04/18/21 @ 12:54 by Delfin Choudhary MD) History of bilateral inguinal hernia repair Repair in 2005 and 2009 Family History Other Cancer Denies family history of Bleeding disorder Social History (Updated 04/18/21 @ 11:09 by Araceli Rothman) Smoking and tobacco status: current every day smoker Second hand smoke exposure: No Smoking risk assessment/counseling performed?: No Alcohol intake: current Alcohol intake frequency: holidays/special occasions only Desire information about alcohol rehabilitation?: No Counseling given: No Desire information about substance/drug rehabilitation?: No Counseling given: No Adopted: No Caregiver/support person: No Lives independently: Yes Household members: significant other and children Housing: House Marital status: Single Number of children: 1 Highest education level completed: GED or Equivalent service: No Current occupational status: employed Current occupation: [employer] in [place], [place] History of recent travel: No Current gender identity: Male Physical Exam Const: COMMON NORMALS: no acute distress, patient oriented x3 and healthy appearing HENMT: COMMON NORMALS: normocephalic and atraumatic HEAD & SCALP: normocephalic and atraumatic Eye: COMMON NORMALS: Equal, round and reactive pupils present and EOMs intact bilaterally PUPIL: Yes Equal, round and reactive pupils present Neck/C-Spine: COMMON NORMALS: full ROM and supple Chest: COMMONS NORMALS: normal inspection of the chest and normal palpation of entire chest wall Resp: COMMON NORMALS: normal respiratory effort, No retractions, No use of accessory muscles and clear to auscultation bilaterally AUSCULTATION: clear to auscultation bilaterally Cardio: COMMON NORMALS: regular rate, regular rhythm and No murmurs present (Cardio) RATE: regular rate RHYTHM: regular rhythm GI: COMMON NORMALS: Normal to inspection, nondistended, normoactive bowel sounds present, Soft to palpation, non-tender and no masses PALPATION: Yes Soft to palpation Extremity: COMMON NORMALS: normal to inspection and full ROM Neuro: COMMON NORMALS: patient oriented x3, moves all extremities and no focal motor deficits Psych: COMMON NORMALS: mental status grossly normal, Normal thought process present and cooperative THOUGHT PROCESS: Normal thought process present Skin: COMMON NORMALS: no rashes or lesions noted and no wounds GENERAL SKIN EXAM: no rashes or lesions noted Course Vital Signs: Vital signs: Vital Signs Temperature 98.7 F 04/27/21 17:49 Pulse Rate 87 04/27/21 18:14 Respiratory Rate 18 04/27/21 18:14 Blood Pressure 150/82 04/27/21 18:14 Pulse Oximetry 98 04/27/21 18:14 [facility] - General Adult Medical Decision Making Patient presents here with concern of foreign body in his bowels patient has been using methamphetamines and believe this is mainly hallucinations almost a week x-ray of his abdomen is normal he is well-appearing here abdominal exam is benign he stable for discharge. Lab Data Radiology Impressions KUB X-Ray 04/27/21 17:19 IMPRESSION: No acute findings. Discharge Plan Discharge Patient Disposition: Home Clinical Impression: Abdominal pain Condition: Stable Prescriptions: No Action Bactrim DS 800-160 mg tablet 1 tab PO BID 10 Days Qty: 20 0RF Naprosyn 500 mg tablet 500 mg PO BID PRN (Reason: pain) Qty: 20 0RF Discharge Orders: Discharge ED (Routine); Ordered 04/27/21 Ordered By: Lucas Schumacher Referrals: Delfin Choudhary MD [Primary Care Provider] - Discharge Diet: Advance as tolerated Discharge Activity: Resume usual activity Patient Instructions: Abdominal Pain (ED) Coding Level of Care Code ED [employer] for [employer]g Fwd Exam Comprehensive
[2021-04-27] MEDS: diphenhydrAMINE 50 mg/mL SDV 1mL IVP (19:19)
[2021-04-27] MEDS: metoclopramide 5 mg/mL SDV 2 mL 10 MG IVP (19:19)
== END 2021-04-27 19:52 | disposition home or self-care (01) ==
PROVIDERS: Emergency Provider Emergency Medicine; PCP Family Medicine Adult Medicine
DX: R10.9 Unspecified abdominal pain (principal); F17.210 Nicotine dependence, cigarettes, uncomplicated
CPT/HCPCS: 74018; 96374; 96375; 99283; J1200; J2765